=== PATIENT | male | born 1950 | race Caucasian/White ===

== ENCOUNTER 2016-11-01 12:01 | Day surgery (SDC) | payer OTHER ==
[~2016-11-01] VITALS: Ht 165.1 cm; Wt 75.1 kg
[~2016-11-01 12:01] MED LIST: ASPI-664 PO; BACL10TA PO; LISI20TA11 PO; LOSA25TA5 PO; PANT40TA4 PO
[2016-11-01] MEDS ORDERED: OXYB5SYR2 PO (12:42)
[2016-11-01] MEDS ORDERED: FINA5TAB4 PO (12:42)
[2016-11-01] MEDS ORDERED: HYD25 PO (12:42)
[2016-11-01] MEDS ORDERED: TAMS0.4C2 PO (12:42)
[2016-11-01] MEDS ORDERED: PROCTOZONE CREAM (12:42)
[2016-11-01] MEDS ORDERED: AZELASTINE 0.1% (12:42)
[2016-11-01] MEDS ORDERED: GLIM1TAB2 PO (12:42)
[2016-11-01] MEDS ORDERED: MECL-77 PO (12:42)
[2016-11-01] MEDS ORDERED: LEVO25TA53 PO (12:42)
[2016-11-01] MEDS ORDERED: CELE200C PO (12:42)
[2016-11-01 12:59] VITALS: Ht 165.1 cm; Wt 75.1 kg
--- NOTE | 2016-11-01 13:34 | OPPN ---
Date/Time of Note Date/Time of Note DATE: 11/01/16 TIME: 13:30 Operative Report Preoperative Diagnosis F/U POLYPS RECTAL BLEEDING CHANGE IN BOWEL HABITS Postoperative Diagnosis 3MM POLYP IN RECTUM Operation/Procedure Performed COLONOSCOPY BIOPSY Provider: TAD ALVARADO MD Anesthesia Type: moderate sedation (3MG VERSED/75 MCG FENTANYL ) Estimated blood loss: none Transfusion Required: no Specimens YES RECTAL POLYP Grafts/Implants: none Grafts/Implants NONE Complications: no TAD ALVARADO MD Nov 01, 2016 13:34
[2016-11-01] MEDS ORDERED: MIDAZOLAM 1 MG/ML 2 ML INJ ONE ×3 (13:45→13:51)
[2016-11-01] MEDS ORDERED: FENTAnyl 50 MCG/ML VIAL ONE ×2 (13:46)
[2016-11-01 13:58] VITALS: BP 95/75; PULSE 55; RESP 18
--- NOTE | 2016-11-02 07:53 | GILP ---
DATE OF PROCEDURE: 11/01/2016 PREOPERATIVE DIAGNOSIS: History of colon polyps. Rectal bleeding. Constipation. PROCEDURE PERFORMED: Colonoscopy and biopsy. POSTOP DIAGNOSIS: A small polyp in the rectum, removed. Otherwise, normal colonoscopy. DESCRIPTION OF PROCEDURE: The patient was put in left lateral decubitus. After obtaining informed consent, was sedated with 3 mg IV Versed and 75 mcg of fentanyl. Rectal exam done. Advanced the Olympus video colonoscope all the way to cecum. The ileocecal valve, appendiceal opening identified. Photography done. Examination of the cecum and ascending colon normal. Transverse colon and descending colon normal. Sigmoid colon was mildly tortuous, otherwise normal. In the rectum, a 3 mm polyp was noted. This was removed with multiple biopsy technique, cold biopsy technique. Retroflexion also done and unremarkable. Upon removal of scope, patient had no complications. PLAN: Await biopsy report. Follow up as outpatient. Repeat colonoscopy in three to five years. Dictated By: Mavis Otero MD /armando/natalia /Document#: [id number] ; Dr. Austyn Hook
== END 2016-11-01 17:26 | disposition home or self-care (01) ==
LOC: GIL 12:01
PROVIDERS: ATTEND Internal Medicine
DX: K62.1 Rectal polyp (principal); K62.5 Hemorrhage of anus and rectum; K59.00 Constipation, unspecified; M06.9 Rheumatoid arthritis, unspecified; I10 Essential (primary) hypertension; Z79.82 Long term (current) use of aspirin
CPT/HCPCS: 45380; 82962; 88305; J2250; J3010